=== PATIENT | female | born 1945 | race Caucasian/White ===

== ENCOUNTER → 2021-05-07 | Day surgery (SDC) | payer MEDICARE | END | disposition home or self-care (01) | LOC: MSO 10:09 | DX: H26.491 Other secondary cataract, right eye (principal); M19.90 Unspecified osteoarthritis, unspecified site; I11.0 Hypertensive heart disease with heart failure; I50.9 Heart failure, unspecified; J44.9 Chronic obstructive pulmonary disease, unspecified; Z79.82 Long term (current) use of aspirin; Z79.899 Other long term (current) drug therapy ==

== ENCOUNTER → 2021-07-17 | Day surgery (SDC) | payer MEDICARE | END | disposition home or self-care (01) | LOC: MSO 06:44 | DX: H26.492 Other secondary cataract, left eye (principal); I11.0 Hypertensive heart disease with heart failure; I50.9 Heart failure, unspecified; J44.9 Chronic obstructive pulmonary disease, unspecified; Z79.82 Long term (current) use of aspirin; Z79.899 Other long term (current) drug therapy; Z95.0 Presence of cardiac pacemaker; H25.042 Posterior subcapsular polar age-related cataract, left eye ==